=== PATIENT | male | born 1965 | race Caucasian/White ===

== ENCOUNTER 2018-06-30 11:31 | Inpatient (IN) | payer OTHER, SELFPAY ==
[~2018-06-30] VITALS: Ht 190.5 cm; Wt 123.5 kg
[2018-06-30 14:25] VITALS: BP 157/90
[2018-06-30 16:00] VITALS: BP 153/86
--- NOTE | 2018-06-30 16:50 | REP ---
Clinical: Weakness . Comparison: None . Technique: PA and lateral. Findings: The mediastinum and cardiac silhouette are normal. The lung michel are clear and without acute consolidation, effusion, or pneumothorax. The skeletal structures are intact and normal. Impression: 1. No acute cardiopulmonary process. Electronically Signed by Hood Reyes MD 06/30/2018 04:41 P
[2018-06-30] MEDS ORDERED: GLUCAGON FOR INJ 1 MG VIAL (J1610) SC PRN (17:15)
[2018-06-30] MEDS ORDERED: DEXTROSE 50% 50 ML SYRINGE IV PRN (17:15)
[2018-06-30] MEDS ORDERED: GLUCOSE 4 GM CHEW TABLET PO PRN (17:15)
[2018-06-30] MEDS: HumaLOG INSULIN (NovoLOG) PER UNIT SC SCH (17:33)
[2018-06-30] MEDS: NS 1,000 ML IV SCH (17:34)
[2018-06-30 18:26] LABS: MB/CK RELATIVE INDEX 1.15 (< OR =4); TROPONIN I 0.27 NG/ML (< 0.10)
[2018-06-30 19:39] VITALS: BP 162/84
[2018-06-30] MEDS ORDERED: GLYB5TA PO (20:22)
[2018-06-30] MEDS ORDERED: LOVE1INJ SC (20:22)
[2018-06-30] MEDS ORDERED: CALCI50TA PO (20:22)
[2018-06-30] MEDS ORDERED: SIMV20TA2 PO (20:22)
[2018-06-30] MEDS ORDERED: ASPI81TAEC PO (20:22)
[2018-06-30] MEDS ORDERED: ALPR0.25 PO (20:22)
[2018-06-30] MEDS ORDERED: BASA100I SC (20:22)
[2018-06-30] MEDS ORDERED: VICT18IN SC (20:22)
[2018-06-30] MEDS ORDERED: IBUPOTC PO (20:22)
[2018-06-30 22:04] LABS: HEMATOCRIT 43.2 % (42.0-52.0); HEMOGLOBIN 14.6 g/dl (13.5-17.5); MEAN CORPUSCULAR HEMOGLOBIN 28.3 pg (27.0-33.0); MEAN CORPUSCULAR HGB CONC 33.8 g/dl (32.0-36.5); MEAN CORPUSCULAR VOLUME 83.9 fl (80.0-96.0); PLATELET COUNT, AUTOMATED 181 10^3/uL (150-450); RED BLOOD COUNT 5.15 10^6/uL (4.30-6.10); WHITE BLOOD COUNT 7.8 10^3/uL (4.0-10.0)
[2018-06-30] MEDS: LEVEMIR (INSULIN DETEMIR) 1 UNITS/0.01ML SC SCH (22:49)
[2018-06-30 23:04] LABS: ALBUMIN 2.7 GM/DL (3.2-5.2); ALT/SGPT 301 U/L (12-78); BILIRUBIN,TOTAL 0.9 MG/DL (0.2-1.0); BLOOD UREA NITROGEN 13 MG/DL (7-18); CALCIUM LEVEL 8.2 MG/DL (8.5-10.1); CARBON DIOXIDE LEVEL 28 MEQ/L (21-32); CHLORIDE LEVEL 101 MEQ/L (98-107); CPK CREATINE PHOSPHOKINASE 6841 U/L (39-308); CREATININE FOR GFR 1.16 MG/DL (0.70-1.30); GLOMERULAR FILTRATION RATE > 60.0 (>56); GLUCOSE, FASTING 296 MG/DL (70-100); MB/CK RELATIVE INDEX 1.02 (< OR =4); POTASSIUM SERUM 3.8 MEQ/L (3.5-5.1); SODIUM LEVEL 136 MEQ/L (136-145); TOTAL PROTEIN 6.1 GM/DL (6.4-8.2); TROPONIN I 0.27 NG/ML (< 0.10)
[2018-07-01] VITALS: BP 141/91
[2018-07-01] MEDS: NS 1,000 ML IV SCH ×4 (03:30→23:45)
[2018-07-01 04:00] VITALS: BP 141/84
[2018-07-01 05:55] LABS: BASO % 0.5 % (0.0-1.0); EOS # 1.2 10^3/uL (0.0-0.50); EOS % 14.7 % (0.0-3.0); HEMATOCRIT 43.1 % (42.0-52.0); HEMOGLOBIN 14.6 g/dl (13.5-17.5); LYMPH # 1.9 10^3/uL (1.5-4.5); LYMPH % 23.6 % (24.0-44.0); MEAN CORPUSCULAR HEMOGLOBIN 28.2 pg (27.0-33.0); MEAN CORPUSCULAR HGB CONC 33.9 g/dl (32.0-36.5); MEAN CORPUSCULAR VOLUME 83.2 fl (80.0-96.0); MONO # 0.5 10^3/uL (0.0-0.8); MONO % 6.3 % (0.0-5.0); NEUTROPHILS # 4.4 10^3/uL (1.8-7.7); NEUTROPHILS % 53.9 % (36.0-66.0); PLATELET COUNT, AUTOMATED 184 10^3/uL (150-450); RED BLOOD COUNT 5.18 10^6/uL (4.30-6.10); WHITE BLOOD COUNT 8.2 10^3/uL (4.0-10.0)
[2018-07-01 06:28] LABS: ALBUMIN 2.7 GM/DL (3.2-5.2); ALT/SGPT 306 U/L (12-78); BILIRUBIN,TOTAL 0.7 MG/DL (0.2-1.0); BLOOD UREA NITROGEN 12 MG/DL (7-18); CALCIUM LEVEL 8.2 MG/DL (8.5-10.1); CARBON DIOXIDE LEVEL 29 MEQ/L (21-32); CHLORIDE LEVEL 101 MEQ/L (98-107); CREATININE FOR GFR 1.13 MG/DL (0.70-1.30); GLOMERULAR FILTRATION RATE > 60.0 (>56); GLUCOSE, FASTING 235 MG/DL (70-100); MAGNESIUM LEVEL 1.7 MG/DL (1.8-2.4); POTASSIUM SERUM 3.4 MEQ/L (3.5-5.1); SODIUM LEVEL 137 MEQ/L (136-145); TOTAL PROTEIN 6.4 GM/DL (6.4-8.2)
[2018-07-01 08:00] VITALS: BP 132/97
[2018-07-01] MEDS ORDERED: POTASSIUM CHLORIDE 10 MEQ SR TABLET PO ONE (08:00)
[2018-07-01] MEDS ORDERED: MAG SULF 1GM/100ML (MAG RUN) 1 GM in APPROPRIATE DILUENT 1 EA IV ONE (08:00)
[2018-07-01] MEDS: HumaLOG INSULIN (NovoLOG) PER UNIT SC SCH ×3 (08:42→17:12)
[2018-07-01 08:49] LABS: MB/CK RELATIVE INDEX 1.03 (< OR =4); TROPONIN I 0.24 NG/ML (< 0.10)
[2018-07-01 12:00] VITALS: BP 145/90
--- NOTE | 2018-07-01 15:56 | ECGEPIP ---
Stationary ECG Study [facility] Test Date: 2018-06-30 Pat Name: TONE RODRIGUEZ Department: Room: [place] [address] Gender: M Selling Specialist: : [id number] Requested By: GIULIA CASANOVA Order Number: [id number] Reading MD: Renan Rubalcava Measurements Intervals [place] Rate: 94 P: 62 KS: 300 QRS: 74 QRSD: 178 T: 20 QT: 414 QTc: 519 Interpretive Statements Normal sinus rhythm Marked first-degree AV block Right axis deviation with right bundle branch block Primary lateral ST/T-wave abnormalities No prior tracing for comparison Clinical correlation advised. Electronically Signed On 07-01-2018 15:56:30 EST by Renan Rubalcava
--- NOTE | 2018-07-01 15:58 | CR ---
DATE OF CONSULTATION: 07/01/2018 REFERRING PROVIDER: Dr. Roberts REASON FOR CONSULTATION: Weakness, suspected myopathy. Flaco Bell is a 53-year-old male with a past medical history significant chronic low back pain, history of diabetes, reasonably uncontrolled over the years with a hemoglobin A1c as high as 13. The patient presented to outside hospital with 6 weeks' complaint of lethargy, flu-like symptoms. The patient states that approximately 8 days ago he started to develop significant burning and pain within his muscles of his lower extremities. He felt quite weak and had difficulty getting up and moving about. He started noticing dark cola-colored urine for several days prior to the weakness onset. He states he was recently restarted on simvastatin 20 mg daily and was taking it for at least 2-3 weeks prior to the symptoms starting. In the past he has been on simvastatin without any issue. The patient was treated for his upper respiratory illness and was treated for rhabdomyolysis an outside facility. AST, ALT, and CPK levels were elevated. His troponin and CK-MB levels were also elevated; however, cardiology felt that this was secondary to an underlying muscular pathology as opposed to true cardiac event. The patient had erythrocyte sedimentation rate (ESR) checked June 25, which was 11. The patient at this point states that every day he is getting better and stronger without any intervention. At baseline he has significant numbness of the lower extremities. The patient cannot feel his toes, feet, or lower extremities. He states that in the he had a severe back injury with two compressed discs. At that time the patient had tremendous back pain with radicular pain. He states that he was weak at first but eventually he got stronger and better. He denies any loss of bowel or bladder function. He states his loss of reflexes in the lower extremities are his baseline. Denies any further progressive paresthesias involving the arms or legs. He denies any cranial nerve pathology at this time. The patient's case is less likely related to Guillain-Tampa syndrome. There are no progressive sensory symptoms involved at this time. The patient strength continues to improve spontaneously, suggesting this is less likely polymyositis. The patient may have an acute toxic myopathy from simvastatin versus myositis with unknown virus. The patient agrees to continue with supportive care regarding is rhabdomyolysis, myoglobinuria, and continue physical therapy. MRI of the lumbosacral spine has been requested to rule out to any spinal pathology of his weakness. PAST MEDICAL HISTORY: 1. Diabetes. 2. Hyperlipidemia. 3. Chronic low back pain. PAST SURGICAL HISTORY: As per electronic medical record. ALLERGIES: SULFA. PRESENT MEDICATIONS: Levemir 52 units subcutaneous REVIEW OF SYSTEMS: A 14-point review of review of systems obtained and is negative except as per history of present illness (HPI). FAMILY HISTORY: Noncontributory. SOCIAL HISTORY: The patient denies use of tobacco, alcohol, or illicit drugs. PHYSICAL EXAMINATION: Blood pressure is 153/86, pulse rate 96, respiratory rate is 20, temperature is 98.9 degrees Fahrenheit, oxygenation is 93% on room air. The patient is awake, awake, alert, oriented to person, place, and time. Speech, language, comprehension, and repetition are intact. Pupils are 3 mm round, reactive to light. Extraocular movements are intact in all directions without nystagmus. V1, V2, V3 are intact to light touch. No facial asymmetry to activation. Palate elevates symmetrically. Tongue is midline. No weakness of sternocleidomastoids bilaterally. Hearing is subjectively equal to finger rub. Strength testing does not reveal any weakness involving the deltoids; however, the patient does have 4+ weakness in his right triceps. Biceps are 5/5. Left triceps is 5/5. Handgrip is 5/5. Iliopsoas is 4+ bilaterally. Quadriceps are 5/5. Tibialis anterior 4+ bilaterally. Deep tendon reflexes are absent at the patellas and Achilles, 2's in the upper extremities. Coordination: Normal [id number] without any signs of ataxia or dysmetria. Romberg testing is completed and negative. Gait is normal. The patient has slight difficulty rising out of a deep seated position and has to use his hands minimally. 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 Differential can include viral use myositis. Less likely Guillain-T[place] syndrome. The patient has chronic areflexia from prolonged poorly controlled diabetes. Rule out spinal stenosis, spinal causes of leg weakness.. PLAN: 1. Continue supportive care, including adequate hydration for rhabdomyolysis. 2. Obtain MRI of lumbosacral spine without contrast. 3. Obtain electromyogram (EMG) nerve conduction study as an outpatient within 2-4 weeks. 4. Avoid use of statin therapy. Specifically avoid simvastatin. 5. The patient can followup in the [facility] Office 4-6 weeks after discharge. Case discussed with both the patient, the patient's primary care team, and .
[2018-07-01 16:00] VITALS: BP 148/87
--- NOTE | 2018-07-01 16:07 | IPNPDOC ---
Text Note Date of Service The patient was seen on 07/01/18. NOTE Subjective: Patient was seen and examined at the bedside. Objective: Vitals (See below) General: Lying in bed, no acute distress, comfortable, AAOx3 HEENT: NC, AT CVS: RRR, +S1S2 Lungs: Fair air entry b/l, -w/r/r Abdomen: Soft, ND, NT Extremities: - Edema, - Calf tenderness Neuro: Muscle strength 5/5 at b/l Lower extremities Assessment and plan: Muscle pain / Weakness - possibly 2/2 rhabdomyolysis - likely 2/2 medications (Statin induced), possibly 2/2 viral etiology (Recent EBV history) - Presented from outside facility for weakness and pain - Physical exam with 5/5 strength at bilateral lower extremities - CK levels trending down - MRI pending - c/w IV fluid hydration - Neurology on consult; appreciate their input Hypokalemia / Hypomagnesemia - Will supplement Elevated troponin - likely 2/2 rhabdomyolysis - Denies any chest pain, SOB or palpitations - c/w IV fluid hydration Elevated Liver enzymes - likely 2/2 rhabdomyolysis - c/w IV fluid hydration IDDM2 - c/w ISS and Levemir DVT prophylaxis - Will start Heparin VS,Fishbone, I+O VS, Fishbone, I+O Laboratory Tests 06/30/18 21:54 Red Blood Count 5.15, Mean Corpuscular Volume 83.9, Mean Corpuscular Hemoglobin 28.3, Mean Corpuscular Hemoglobin Concent 33.8, Red Cell Distribution Width 12.7, Calcium Level 8.2 L, Aspartate Amino Transf (AST/SGOT) 230 H, Alanine Aminotransferase (ALT/SGPT) 301 H, Total Creatine Kinase 6841 H, Alkaline Phosphatase 106, Total Bilirubin 0.9, Total Protein 6.1 L, Albumin 2.7 L 07/01/18 05:17 Red Blood Count 5.18, Mean Corpuscular Volume 83.2, Mean Corpuscular Hemoglobin 28.2, Mean Corpuscular Hemoglobin Concent 33.9, Red Cell Distribution Width 12.7, Calcium Level 8.2 L, Aspartate Amino Transf (AST/SGOT) 224 H, Alanine Aminotransferase (ALT/SGPT) 306 H, Alkaline Phosphatase 108, Total Bilirubin 0.7, Total Protein 6.4, Albumin 2.7 L, Neutrophils (%) (Auto) 53.9, Lymphocytes (%) (Auto) 23.6 L, Monocytes (%) (Auto) 6.3 H, Eosinophils (%) (Auto) 14.7 H, Basophils (%) (Auto) 0.5, Neutrophils # (Auto) 4.4, Lymphocytes # (Auto) 1.9, Monocytes # (Auto) 0.5, Eosinophils # (Auto) 1.2 H, Basophils # (Auto) 0.0 Vital Signs Date Time Temp Pulse Resp B/P (MAP) Pulse Ox O2 Delivery O2 Flow Rate FiO2 07/01/18 12:00 97.6 84 18 145/90 (108) 94 Room Air I&O- Last 24 Hours up to 6 AM 07/01/18 06:00 Intake Total 480 ml Output Total 2625 ml Balance -2145 ml SOL BLOUNT MD Jul 01, 2018 16:07
[2018-07-01 20:00] VITALS: BP 154/96
[2018-07-01] MEDS: LEVEMIR (INSULIN DETEMIR) 1 UNITS/0.01ML SC SCH (20:48)
[2018-07-01] MEDS ORDERED: HumaLOG INSULIN (NovoLOG) PER UNIT SC SCH (21:00)
[2018-07-01] MEDS: HEPARIN SOD (PORCINE) 5000 UNITS/ML VIAL SQ SCH (21:05)
[2018-07-02] VITALS: BP 158/92
[2018-07-02 04:00] VITALS: BP 128/62
[2018-07-02 05:18] LABS: BASO # 0.1 10^3/uL (0.0-0.2); BASO % 0.6 % (0.0-1.0); EOS # 1.2 10^3/uL (0.0-0.50); EOS % 15.7 % (0.0-3.0); HEMATOCRIT 43.4 % (42.0-52.0); HEMOGLOBIN 14.5 g/dl (13.5-17.5); LYMPH # 2.1 10^3/uL (1.5-4.5); LYMPH % 26.2 % (24.0-44.0); MEAN CORPUSCULAR HEMOGLOBIN 28.2 pg (27.0-33.0); MEAN CORPUSCULAR HGB CONC 33.4 g/dl (32.0-36.5); MEAN CORPUSCULAR VOLUME 84.3 fl (80.0-96.0); MONO # 0.5 10^3/uL (0.0-0.8); MONO % 6.5 % (0.0-5.0); NEUTROPHILS # 3.9 10^3/uL (1.8-7.7); NEUTROPHILS % 49.5 % (36.0-66.0); PLATELET COUNT, AUTOMATED 201 10^3/uL (150-450); RED BLOOD COUNT 5.15 10^6/uL (4.30-6.10); WHITE BLOOD COUNT 7.8 10^3/uL (4.0-10.0)
[2018-07-02 05:46] LABS: ALBUMIN 2.7 GM/DL (3.2-5.2); ALT/SGPT 294 U/L (12-78); BILIRUBIN,TOTAL 0.6 MG/DL (0.2-1.0); BLOOD UREA NITROGEN 15 MG/DL (7-18); CARBON DIOXIDE LEVEL 27 MEQ/L (21-32); CHLORIDE LEVEL 104 MEQ/L (98-107); CREATININE FOR GFR 1.08 MG/DL (0.70-1.30); GLOMERULAR FILTRATION RATE > 60.0 (>56); GLUCOSE, FASTING 190 MG/DL (70-100); POTASSIUM SERUM 3.7 MEQ/L (3.5-5.1); SODIUM LEVEL 139 MEQ/L (136-145); TOTAL PROTEIN 6.3 GM/DL (6.4-8.2)
[2018-07-02] MEDS: NS 1,000 ML IV SCH ×2 (06:08→11:40)
[2018-07-02] MEDS: HEPARIN SOD (PORCINE) 5000 UNITS/ML VIAL SQ SCH ×2 (06:08→13:32)
[2018-07-02] MEDS: HumaLOG INSULIN (NovoLOG) PER UNIT SC SCH ×2 (07:47→11:41)
[2018-07-02 08:00] VITALS: BP 132/88
[2018-07-02 08:13] LABS: CPK CREATINE PHOSPHOKINASE 5044 U/L (39-308); MB/CK RELATIVE INDEX 1.07 (< OR =4); TROPONIN I 0.22 NG/ML (< 0.10)
--- NOTE | 2018-07-02 11:00 | HPE ---
DATE OF ADMISSION: 06/30/2018 CHIEF COMPLAINT: Weakness. This is a 53-year-old male who was transferred from [facility]. He has a history of chronic low back pain, diabetes, uncontrolled. He had been feeling unwell at home for approximately 6 weeks. He had had increasing lethargy. He has malaise. He had a cough. He had flulike symptoms. He began to develop significant burning and pain in his muscles of all of his extremities, especially his lower extremities. He felt weaker and weaker with difficulty even moving around. He states he had recently been restarted on simvastatin and had been on it about 2-3 weeks before the start of the symptoms. He went to the emergency room at [facility] and was admitted. He had elevated CPK over 11,000. He had elevated troponins. His EKG and troponins were reviewed by a customer sales advisor who felt it was noncardiac and was related to rhabdomyolysis. Sed rate done at [facility] on 06/25/2018 was 11. Patient was treated with intravenous (IV) fluids. He has had slow improvement. The CPKs have begun to decrease. AST and ALT remain elevated. He has gotten stronger, and the pain and burning have decreased. He still feels slightly weakened. Denies loss of any bowel or bladder control. Reflexes on the lower extremities are present. He states they are at his baseline. States he feels his strength is improving slightly every day, but as he still felt weakened, had some numbness in his toes, possibly secondary from his chronic back pain but also continued, though improved, elevated CPKs, elevated AST/ALT, weakness, request was made for transfer to [facility] for neurology consult. Patient was accepted as transferred and will be admitted under the hospitalist's service to Dr. Jaquez and will request a neurology study. Patient was admitted to the progressive care unit (PCU), inpatient status, for further workup and monitoring. Patient will be placed on telemetry. ALLERGIES: SULFA ANTIBIOTICS. PAST MEDICAL HISTORY: Insulin-dependent diabetes, type 2, with poor control Hyperlipidemia. Chronic low back pain. PAST SURGICAL HISTORY: Age 6 months, hernia repair. Right great toe knuckle removed. 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 HOME MEDICATIONS: - Victoza 1.8 mg daily - glipizide 5 mg by mouth twice a day - Basaglar 52 units subcu nightly - simvastatin 20 mg by mouth daily, which has been stopped SOCIAL HISTORY: He is . He rarely drinks alcohol. He does not smoke cigarettes. He does not use recreational drugs. REVIEW OF SYSTEMS: 12-point review of systems was done and was negative other than the weakness and burning as described in the history of present illness (HPI). FAMILY HISTORY: Noncontributory. PHYSICAL EXAM: 53-year-old cooperative male in no acute distress. Blood pressure 140/90, pulse 92, temperature 99, respirations 18, oxygen saturation 92% on room air. Patient is alert and oriented times three. Pupils equal and react to light. Extraocular muscles (EOMs) intact. Cornea and sclerae are clear. Conjunctivae are normal. No facial asymmetry. Pharynx, tongue, and gums pink and moist. Tongue is midline. NECK: Is supple without lymphadenopathy. No thyromegaly. No goiter. Carotids are 2+ without bruit. CHEST: Clear to auscultation without wheeze or retraction. HEART: Is regular. ABDOMEN: Benign. Bowel sounds positive. GENITOURINARY ()/RECTAL: Not done. EXTREMITIES: Show equal strength, full range of motion. No cyanosis, clubbing, or edema. Negative Romberg. Gait steady. Peripheral pulses equal and palpable bilaterally. SKIN: Is warm and dry. IMPRESSION/PLAN: Rhabdomyolysis. Continue hydration. Weakness. Get neurological consult. Continue no statin therapy. Insulin-dependent diabetes, type 2. Fingerstick blood sugars, before food and nightly with coverage. Continue Basaglar. Diabetic teaching.
[2018-07-02 12:00] VITALS: BP 138/90
--- NOTE | 2018-07-02 12:40 | DS.PDOC ---
Discharge Summary General Date of Admission Jun 30, 2018 at 14:29 Date of Discharge 07/02/2018 Discharge Summary PROCEDURES PERFORMED DURING STAY: [None]. ADMITTING DIAGNOSES / DISCHARGE DIAGNOSES: Muscle pain / Weakness - possibly 2/2 rhabdomyolysis - likely 2/2 medications (Statin induced), possibly 2/2 viral etiology (Recent EBV history) Hypokalemia / Hypomagnesemia Elevated troponin - likely 2/2 rhabdomyolysis Elevated Liver enzymes - likely 2/2 rhabdomyolysis IDDM2 DVT prophylaxis COMPLICATIONS/CHIEF COMPLAINT: Weakness. HISTORY OF PRESENT ILLNESS: Patient's 53-year-old male with a PMHx of IDDM2, Chronic lower back pain, who presented from an outside hospital because of worsening leg pain and weakness. Patient has a history of using simvastatin on and off. Patient was transferred over to [facility] for further evaluation. Hospitalist service has accepted the patient on transfer and has consulted neurology for further input. HOSPITAL COURSE: Muscle pain / Weakness - possibly 2/2 rhabdomyolysis - likely 2/2 medications (Statin induced), possibly 2/2 viral etiology (Recent EBV history) - Presented from outside facility for weakness and pain - Physical exam with 5/5 strength at bilateral lower extremities - CK levels trending down - MRI ordered - c/w IV fluid hydration - Neurology on consult; appreciate their input Hypokalemia / Hypomagnesemia - Will supplement Elevated troponin - likely 2/2 rhabdomyolysis - Denies any chest pain, SOB or palpitations - c/w IV fluid hydration Elevated Liver enzymes - likely 2/2 rhabdomyolysis - c/w IV fluid hydration IDDM2 - c/w ISS and Levemir DVT prophylaxis - c/w Heparin DISCHARGE MEDICATIONS: Please see below. ALLERGIES: Please see below. PHYSICAL EXAMINATION ON DISCHARGE: Vitals (See below) General: Lying in bed, no acute distress, comfortable, AAOx3 HEENT: NC, AT CVS: RRR, +S1S2 Lungs: Fair air entry b/l, auscultation without wheezing, rhonchi or rales Abdomen: Soft, nondistended, without tenderness Extremities: No evidence of a tremor, edema, - Calf tenderness Neuro: Muscle strength 5/5 at b/l Lower extremities LABORATORY DATA: Please see below. ACTIVITY: [As tolerated]. DISCHARGE PLAN: Follow-up with PCP and Dr. Lara within 7 days Remain compliant with treatment plan and medications Return to the ER if you experience any problems DISPOSITION: Home DISCHARGE CONDITION: [Stable]. TIME SPENT ON DISCHARGE: Greater than [35] minutes. Vital Signs/I&Os Vital Signs Date Time Temp Pulse Resp B/P (MAP) Pulse Ox O2 Delivery O2 Flow Rate FiO2 07/02/18 12:00 97.6 88 18 138/90 (106) 94 Room Air I&O- Last 24 Hours up to 6 AM 07/02/18 06:00 Intake Total 4987.0 ml Output Total 5225 ml Balance -238.0 ml Laboratory Data Labs 24H Laboratory Tests 2 07/01/18 16:46: Bedside Glucose (Misc Panel) 231H 07/01/18 20:34: Bedside Glucose (Misc Panel) 216H 07/02/18 04:41: Immature Granulocyte % (Auto) 1.5, White Blood Count 7.8, Red Blood Count 5.15, Hemoglobin 14.5, Hematocrit 43.4, Mean Corpuscular Volume 84.3, Mean Corpuscular Hemoglobin 28.2, Mean Corpuscular Hemoglobin Concent 33.4, Red Cell D istribution Width 12.7, Platelet Count 201, Neutrophils (%) (Auto) 49.5, Lymphocytes (%) (Auto) 26.2, Monocytes (%) (Auto) 6.5H, Eosinophils (%) (Auto) 15.7H, Basophils (%) (Auto) 0.6, Neutrophils # (Auto) 3.9, Lymphocytes # (Auto) 2.1, Monocytes # (Auto) 0.5, Eosinophils # (Auto) 1.2H, Basophils # (Auto) 0.1, Nucleated Red Blood Cells % (auto) 0.0, Anion Gap 8, Glomerular Filtration Rate > 60.0, Blood Urea Nitrogen 15, Creatinine 1.08, Sodium Level 139, Potassium Level 3.7, Chloride Level 104, Carbon Dioxide Level 27, Calcium Level 8.0L, Aspartate Amino Transf (AST/SGOT) 176H, Alanine Aminotransferase (ALT/SGPT) 294H, Total Creatine Kinase 5044H, Alkaline Phosphatase 103, Total Bilirubin 0. 6, Total Protein 6.3L, Albumin 2.7L, Creatine Kinase MB 54.0H, Creatine Kinase MB Relative Index 1.07, Troponin I 0.22H, Albumin/Globulin Ratio 0.75L 07/02/18 11:31: Bedside Glucose (Misc Panel) 201H CBC/BMP Laboratory Tests 07/02/18 04:41 Red Blood Count 5.15, Mean Corpuscular Volume 84.3, Mean Corpuscular Hemoglobin 28.2, Mean Corpuscular Hemoglobin Concent 33.4, Red Cell Distribution Width 12.7, Neutrophils (%) (Auto) 49.5, Lymphocytes (%) (Auto) 26.2, Monocytes (%) (Auto) 6.5 H, Eosinophils (%) (Auto) 15.7 H, Basophils (%) (Auto) 0.6, Neutrophils # (Auto) 3.9, Lymphocytes # (Auto) 2.1, Monocytes # (Auto) 0.5, Eosinophils # (Auto) 1.2 H, Basophils # (Auto) 0.1, Calcium Level 8.0 L, Aspartate Amino Transf (AST/SGOT) 176 H, Alanine Aminotransferase (ALT/SGPT) 294 H, Total Creatine Kinase 5044 H, Alkaline Phosphatase 103, Total Bilirubin 0.6, Total Protein 6.3 L, Albumin 2.7 L FSBS Laboratory Tests Test 07/01/18 16:46 07/01/18 20:34 07/02/18 11:31 Range/Units Bedside Glucose (Misc Panel) 231 216 201 70-105 MG/DL Discharge Medications Scheduled (Basaglar [place]) 100 Unit/Ml Inj, 52 UNIT SC QHS, (Reported) Aspirin (Aspirin EC) 81 Mg Tabec, 81 MG PO DAILY, (Reported) Glyburide (Glyburide) 5 Mg Tab, 5 MG PO BID, (Reported) Liraglutide (Victoza) 18 Mg/3 Ml Inj, 1.8 MG SC DAILY, (Reported) Simvastatin (Simvastatin) 20 Mg Tab, 20 MG PO QHS, (Reported) Scheduled PRN Ibuprofen (Ibuprofen) 200 Mg Tab, 600 MG PO Q6H PRN for PAIN, (Reported) Allergies Coded Allergies: Sulfa Antibiotics (Verified Allergy, Unknown, 06/30/18) SOL BLOUNT MD Jul 02, 2018 12:39
--- NOTE | 2018-07-02 16:00 | REP ---
MR LUMBAR SPINE WITHOUT CONTRAST: HISTORY: Back pain. Decreased signal intensity on T2-weighted images is present in the L2-3 through L5-S1 intervertebral discs. The discs are decreased in height. These findings are consistent with disc degeneration. A diffuse disc bulge is present at the L1-2 level. There is hypertrophy of the ligamenta flava and posterior articulating facets. These findings produce minimal central canal stenosis. The L1 nerves exit the neural foramina without compression. A diffuse disc bulge is present at the L2-3 level. There is hypertrophy of the ligamenta flava and posterior articulating facets. These findings produce minimal central canal stenosis. The L2 nerves exit the neural foramina without compression. A diffuse disc bulge is present at the L3-4 level. There is hypertrophy of the ligamenta flava and posterior articulating facets. These findings produce mild central canal stenosis. The L3 nerves exit the neural foramina without compression. A diffuse disc bulge is present at the L4-5 level. There is hypertrophy of the ligamenta flava and posterior articulating facets. These findings produce severe central canal stenosis. A small right intraforaminal disc protrusion is present. There is compression of the right L4 nerve in the neural foramen. The left L4 nerve exits the neural foramen without compression. A diffuse disc bulge is present at the L5-S1 level. There are 2 mm of retrolisthesis of L5 on S1. There is minimal compression of the thecal sac. There is hypertrophy of the posterior articulating facets. There is compression of the L5 nerves in the neural foramina. The conus medullaris is normal in appearance terminating at the level of the L1-2 intervertebral disc. Increased signal intensity on T2-weighted images is present in the endplates of the L2-S1 vertebral bodies. This represents degenerative change. There are old compression fractures of the L2 and L3 vertebral bodies with minimal height loss. IMPRESSION: 1. Minimal central canal stenosis at the L1-2 and L2-3 levels secondary to disc bulge, ligamentous, and facet hypertrophy. 2. Mild central canal stenosis at the L3-4 level secondary to disc bulge, ligamentous, and facet hypertrophy. 3. Severe central canal stenosis at the L4-5 level secondary to disc bulge, ligamentous, and facet hypertrophy. A small right intraforaminal disc protrusion is present. There is compression of the right L4 nerve in the neural foramen. 4. Diffuse disc bulge at the L5-S1 level with minimal thecal sac compression. There is compression of the L5 nerves in the neural foramina. Electronically Signed by Dhiraj Mills MD 07/02/2018 04:15 P
[2018-07-02 16:11] VITALS: BP 138/86
== END 2018-07-02 17:21 | disposition home or self-care (01) | DRG 351 ==
LOC: M PCU 14:29
PROVIDERS: ADMIT Internal Medicine; ATTEND Internal Medicine
DX: M62.82 Rhabdomyolysis (principal); E11.65 Type 2 diabetes mellitus with hyperglycemia; E78.5 Hyperlipidemia, unspecified; M54.5 Low back pain; T46.6X5A Adverse effect of antihyperlipidemic and antiarteriosclerotic drugs, initial encounter; Z89.422 Acquired absence of other left toe(s); Z79.84 Long term (current) use of oral hypoglycemic drugs; Z79.899 Other long term (current) drug therapy